=== PATIENT | female | born 1980 | race Caucasian/White ===

== ENCOUNTER 2022-11-16 17:54 | Emergency (ER) | payer SELFPAY ==
[2022-11-16 18:06] VITALS: BP 94/51; PULSE 104; RESP 20; TEMP 38.6; O2SAT 97; BMI 36.6
[2022-11-16 18:46] LABS: Basophils % 0.4 %; Eosinophils # 0.1 10^3/uL (0.0-0.8); Eosinophils % 2.6 %; Lymphocytes # 0.9 10^3/uL (0.8-4.8); Lymphocytes % 34.3 %; Mean Corpuscular HGB Conc 35.7 g/dL (30-55); Mean Corpuscular Hemoglobin 39.5 pg (27-33); Mean Corpuscular Volume 110.8 fl (85-98); Mean Platelet Volume 12.1 fL (7.4-10.4); Monocytes # 0.1 10^3/uL (0.2-0.9); Monocytes % 5.2 %; Neutrophils # 1.52 10^3/uL (1.8-7.7); Nucleated Red Blood Cells % 0 %; Platelet Count 142 10^3/cmm (157-399); Red Blood Count 1.67 10^6/uL (3.85-5.65); Red Cell Distribution Width 14.2 % (12.1-15.1); White Blood Count 2.71 10^3/uL (3.29-11.43)
[2022-11-16 19:01] LABS: Hematocrit 18.5 % (36-47)
[2022-11-16 19:14] LABS: Alanine Aminotransferase 27 U/L (0-33); Albumin Level 3.9 g/dL (3.5-5.2); Alkaline Phosphatase 56 U/L (35-105); Anion Gap 10.6 (5-19); Aspartate Amino Transferase 25 U/L (0-32); Blood Urea Nitrogen 10 mg/dL (6-20); Calcium 8.2 mg/dL (8.5-10.5); Carbon Dioxide 25 mmol/L (22-29); Chloride 105 mmol/L (98-107); Globulin 2.4 g/dL (1.3-4.6); Glomerular Filtration Rate 91.8 mL/min (90-130); Glucose 96 mg/dL (65-115); Magnesium 1.9 mg/dL (1.7-2.3); Osmolality Calculated 283 mOsm/kg (285-295); Potassium 3.6 mmol/L (3.5-5.1); Sodium 137 mmol/L (136-145); Total Protein 6.3 g/dL (6.6-8.7)
[2022-11-16 20:01] LABS: Erythrocyte Sedimentation Rate < 1 mm/hr (0-15)
[2022-11-16 20:14] VITALS: BP 116/58; PULSE 104; RESP 18; O2SAT 98
--- NOTE | 2022-11-16 20:28 | XRR_ITS ---
PROCEDURE INFORMATION: Exam: XR Chest Exam date and time: 11/16/2022 8:52 PM Age: 42 years old Clinical indication: Fever TECHNIQUE: Imaging protocol: Radiologic exam of the chest. Views: 1 view. COMPARISON: No relevant prior studies available. FINDINGS: Lungs: Unremarkable. No consolidation. Pleural spaces: Unremarkable. No pleural effusion. No pneumothorax. Heart/Mediastinum: Unremarkable. No cardiomegaly. Bones/joints: Unremarkable. XR/XR chest 1V portable [id number] IMPRESSION: No acute findings.
[2022-11-16 20:30] LABS: C Reactive Protein 27.6 mg/L (0.0-4.9); Lactic Sepsis W/Reflex 0.7 mmol/L (0.5-2.2)
[2022-11-16 20:35] LABS: Procalcitonin 0.39 ng/mL (0-0.5)
[2022-11-16 20:38] LABS: Add Urine Microscopic? NO; Charge for UA Resulting for Rev
[2022-11-16 20:45] LABS: Bilirubin Urine Neg (Negative); Blood Urine Neg (Negative); Glucose Urine UA Norm (Normal); Ketones Urine Negative (Negative); Leukocyte Esterase Urine Negative (Negative); Nitrate Urine Negative (Negative); Protein Urine Neg (Negative); Specific Gravity, Urine 1.015 (1.005-1.030); Sulfosalicylic Acid Urine Negative (Negative); Urine Appearance Clear (CLEAR); Urine Color Yellow (Yellow); Urobilinogen Urine 1 mg/dL (Negative); pH Urine 9 (5-7)
[2022-11-16] MEDS: acetaminophen 500 mg Tablet 1000 MG PO (20:52)
[2022-11-16 21:01] LABS: Influenza A by IFA negative (Negative); Influenza B by IFA negative (Negative)
--- NOTE | 2022-11-16 21:03 | ED_ITS ---
HPI - Nausea/Vomiting/Diarrhea General: Chief complaint: Nausea/Vomiting/Diarrhea Stated complaint: fever, n/v, chills ,post surgery Time Seen by Provider: 11/16/22 20:14 History of Present Illness: Patient presents to the ER with complaints of body aches chills fever since yesterday, nausea vomiting for a long time. And blood loss anemia in her stools. Patient is currently being worked up for her blood loss in her stools she did have a colonoscopy and EGD yesterday in [place] that she said was normal other than 1 small polyp. Patient states she has had a fever of up to 102.7 since yesterday and just feels horrible all over. Patient denies any coughs colds congestion or pain burning frequency with urination. Review of Systems General: Reports: 10 or more systems reviewed and unremarkable except in HPI and below Physical Exam Const: COMMON NORMALS: no acute distress, average body habitus, patient oriented x3, no limitations, healthy appearing, alert and well nourished HENMT: COMMON NORMALS: normocephalic, atraumatic, hearing grossly normal bilaterally, external ears normal, Normal external nose present and moist oral mucous membranes HEAD & SCALP: normocephalic and atraumatic NOSE: Normal external nose present EXTERNAL EAR: Yes external ears normal Neck/C-Spine: COMMON NORMALS: no JVD Chest: COMMONS NORMALS: normal inspection of the chest and normal palpation of entire chest wall Resp: COMMON NORMALS: normal respiratory effort, No retractions, No use of accessory muscles and clear to auscultation bilaterally AUSCULTATION: clear to auscultation bilaterally Cardio: COMMON NORMALS: no JVD, regular rate, regular rhythm, S1 normal heart sound present, S2 normal heart sound present, No gallops present (Cardio), No clicks present (Cardio), No murmurs present (Cardio) and No rub (Cardio) RATE: regular rate RHYTHM: regular rhythm HEART SOUNDS: S1 normal heart sound present and S2 normal heart sound present GI: COMMON NORMALS: Normal to inspection, nondistended, normoactive bowel sounds present, Soft to palpation, No hepatosplenomegaly present and no masses; negative for non-tender (Diffusely mildly tender) PALPATION: Yes Soft to palpation and Yes No hepatosplenomegaly present : COMMON NORMALS: Yes no CVA tenderness BLADDER/KIDNEY EXAM: Yes no CVA tenderness Back/Pelvis: COMMON NORMALS: no CVA tenderness Neuro: COMMON NORMALS: patient oriented x3 SENSORIUM/ORIENTATION: Yes alert Course Vital Signs: Vital signs: Vital Signs Temperature 101.5 F H 11/16/22 18:06 Pulse Rate 95 11/16/22 21:11 Respiratory Rate 19 H 11/16/22 21:11 Blood Pressure 103/58 11/16/22 21:11 Pulse Oximetry 96 11/16/22 21:11 Oxygen Delivery Me thod Room Air 11/16/22 21:11 MDM - Nausea/Vomiting/Diarrhea Medical Decision Making Patient presents to the ER for body aches chills fevers and anemia. Patient says she has had a colonoscopy and EGD in [place] and multiple blood work-up looking for the results of her blood loss anemia. Which were never found. And since yesterday post colonoscopy she has felt horrible and had a fever. Lab test was performed here which showed a hemoglobin of 6.6 hematocrit of 18.5 with a white count of 2.7 platelets of 142, chest x-ray was negative as well as urine and influenza and COVID. Blood cultures were also obtained. Patient will be transfused 1 unit of packed red cells and then discharged home. Patient should follow-up with her PCP for further evaluation and treatment of her anemia. Differential Diagnosis Unlikely traveler's diarrhea, food poisoning, gastroenteritis, clostridium difficile infection, drug-induced nausea and vomiting or dehydration Medical Records I reviewed the patient's medical records. Lab Data I reviewed the patient's lab results. 11/16/22 18:41 11/16/22 18:41 Radiology Impressions Chest X-Ray 11/16/22 20:28 IMPRESSION: No acute findings. Laboratory Results WBC 2.71 10^3/uL (3.29-11.43) L 11/16/22 18:41 RBC 1.67 10^6/uL (3.85-5.65) L 11/16/22 18:41 Hgb 6.60 g/dL (11.27-16.99) L 11/16/22 18:41 Hct 18.5 % (36-47) L* 11/16/22 18:41 MCV 110.8 fl (85-98) H 11/16/22 18:41 MCH 39.5 pg (27-33) H 11/16/22 18:41 MCHC 35.7 g/dL (30-55) 11/16/22 18:41 RDW 14.2 % (12.1-15.1) 11/16/22 18:41 Plt Count 142 10^3/cmm (157-399) L 11/16/22 18:41 MPV 12.1 fL (7.4-10.4) H 11/16/22 18:41 Neut % (Auto) 56.0 % 11/16/22 18:41 Lymph % (Auto) 34.3 % 11/16/22 18:41 [place] % (Auto) 5.2 % 11/16/22 18:41 Eos % (Auto) 2.6 % 11/16/22 18:41 Baso % (Auto) 0.4 % 11/16/22 18:41 Neut # (Auto) 1.52 10^3/uL (1.8-7.7) L 11/16/22 18:41 Lymph # (Auto) 0.9 10^3/uL (0.8-4.8) 11/16/22 18:41 [place] # (Auto) 0.1 10^3/uL (0.2-0.9) L 11/16/22 18:41 Eos # (Auto) 0.1 10^3/uL (0.0-0.8) 11/16/22 18:41 Baso # (Auto) 0.0 10^3/uL (0.0-0.1) 11/16/22 18: Nucleated RBC % (auto) 0 % 11/16/22 18:41 Nucleated RBCs # 0.0 /100WBC 11/16/22 18:41 ESR < 1 mm/hr (0-15) 11/16/22 18:41 Sodium 137 mmol/L (136-145) 11/16/22 18:41 Potassium 3.6 mmol/L (3.5-5.1) 11/16/22 18:41 Chloride 105 mmol/L (98-107) 11/16/22 18:41 Carbon Dioxide 25 mmol/L (22-29) 11/16/22 18:41 Anion Gap 10.6 (5-19) 11/16/22 18:41 BUN 10 mg/dL (6-20) 11/16/22 18:41 Creatinine 0.7 mg/dL (0.5-0.9) 11/16/22 18:41 GFR Calculation 91.8 mL/min (90-130) 11/16/22 18:41 Glucose 96 mg/dL (65-115) 11/16/22 18:41 Calculated Osmolality 283 mOsm/kg (285-295) L 11/16/22 18:41 Lactic Acid 0.7 mmol/L (0.5-2.2) 11/16/22 18:41 Calcium 8.2 mg/dL (8.5-10.5) L 11/16/22 18:41 Magnesium 1.9 mg/dL (1.7-2.3) 11/16/22 18:41 Total Bilirubin 1.0 mg/dL (0.15-1.2) 11/16/22 18:41 AST 25 U/L (0-32) 11/16/22 18:41 ALT 27 U/L (0-33) 11/16/22 18:41 Alkaline Phosphatase 56 U/L (35-105) 11/16/22 18:41 C-Reactive Protein 27.6 mg/L (0.0-4.9) H 11/16/22 18:41 Total Protein 6.3 g/dL (6.6-8.7) L 11/16/22 18:41 Albumin 3.9 g/dL (3.5-5.2) 11/16/22 18:41 Globulin 2.4 g/dL (1.3-4.6) 11/16/22 18:41 Procalcitonin 0.39 ng/mL (0-0.5) 11/16/22 18:41 Urine Color Yellow (Yellow) 11/16/22 20:21 Urine Appearance Clear (CLEAR) 11/16/22 20:21 Urine pH 9 (5-7) H 11/16/22 20:21 Ur Specific [place] 1.015 (1.005-1.030) 11/16/22 20:21 Urine Protein Neg (Negative) 11/16/22 20:21 Urine Glucose (UA) Norm (Normal) 11/16/22 20:21 Urine Ketones Negative (Negative) 11/16/22 20: Urine Blood Neg (Negative) 11/16/22 20:21 Urine Nitrate Negative (Negative) 11/16/22 20:21 Urine Bilirubin Neg (Negative) 11/16/22 20:21 Prot Sulfosalicylic Acd Negative (Negative) 11/16/22 20:21 Urine Urobilinogen 1 mg/dL (Negative) H 11/16/22 20:21 Ur Leukocyte Esterase Negative (Negative) 11/16/22 20:21 Influenza Type A Ag negative (Negative) 11/16/22 20:38 Influenza Type B Ag negative (Negative) 11/16/22 20:38 SARS-CoV-2 Ag (Rapid) negative (Negative) 11/16/22 20:38 Blood Type O Positive 11/16/22 20:10 Rho(D) Type Positive 11/16/22 20:10 Antibody Screen Negative 11/16/22 20:10 Discharge Plan Discharge Patient Disposition: Home Clinical Impression: Anemia requiring transfusions, Nausea & vomiting Fever Qualifiers: Fever type: unspecified Qualified Code(s): R50.9 - Fever, unspecified Condition: Stable Discharge Orders: Discharge ED (Routine); Ordered 11/16/22 Ordered By: Adelso Schwab Patient Instructions: Blood Transfusion, Fever - Adult, Acute Nausea and Vomiting (ED) Activity Restrictions/Additional Instructions: Follow-up with your primary care doc for further evaluation and treatment of your anemia and blood in stools. We have ger blood cultures here today to try to rule out what causes your fever. We will have those results in a couple days. If they are positive we will call you. Coding Level of Care Code ED Magnetic Testing Technician for [facility]
[2022-11-16] MEDS: ondansetron 2 mg/ML SDV 2 mL 4 MG IVP (21:09)
[2022-11-16 21:11] VITALS: BP 103/58; PULSE 95; RESP 19; O2SAT 96
[2022-11-16 21:15] LABS: SARS Covid-2 Antigen negative (Negative)
--- NOTE | 2022-11-16 21:37 | PC.NURSE ---
Patient thinks that she is having an allergic reaction to something. ONly medications that she has been given are PO tylenol and ivp zofran. Pt states that she is not allergic to either of these. C/o burning and itching everywhere. NO visible rash/ hives/redness. Dr Curran notified and verbal order for Benadryl 50mg ivp.
--- NOTE | 2022-11-16 21:52 | PC.NURSE ---
Went to admin Benadryl to patient and she states that she is no longer burning or itching. Declined medication at this time. Provider notified and medication returned to the [facility].
--- NOTE | 2022-11-16 23:20 | PC.NURSE ---
PRBC admin witnessed by Kaden Bazan RN prior to. # [id number]
[2022-11-16 23:23] VITALS: BP 101/53; PULSE 84; RESP 14; TEMP 36.6; O2SAT 96
[2022-11-16] MEDS: sodium chloride 0.9% 100 mL Bag 50 ML IV (23:35)
[2022-11-16] MEDS: ibuprofen 600 mg Tablet PO (23:37)
[2022-11-16 23:39] VITALS: BP 119/57; PULSE 83; RESP 18; TEMP 36.8; O2SAT 95
--- NOTE | 2022-11-16 23:40 | PC.NURSE ---
BP CUff placed on left arm at first take, moved to right for pt comfort.
[2022-11-16 23:54] VITALS: BP 101/51; PULSE 84; RESP 14; TEMP 37.1; O2SAT 97
[2022-11-17] VITALS (7 sets, daily range): BP systolic 101–122; BP diastolic 55–70; PULSE 72–80; RESP 14–22; TEMP 36.2–37.7; O2SAT 93–97
--- NOTE | 2022-11-17 02:15 | PC.NURSE ---
0054 vitals - temp elevation of 99.8, recheck 99.9. infusion stopped and dr camarillo consulted. Pt had fever on arrival. Per provider, hold infusionx 30 mins and recheck temp. Pt has no other complaints at this time.
--- NOTE | 2022-11-17 02:17 | PC.NURSE ---
recheck of vitals- temp normal x 2 takes. Provider notified and instructed to restart infusion.
== END 2022-11-17 03:42 | disposition home or self-care (01) ==
PROVIDERS: Physician Assistant; Emergency Provider Emergency Medicine
DX: R50.9 Fever, unspecified (principal); R11.2 Nausea with vomiting, unspecified; D64.9 Anemia, unspecified; Z20.822 Contact with and (suspected) exposure to COVID-19
CPT/HCPCS: 36415; 36430; 71045; 80053; 81003; 83605; 83735; 84145; 85025; 85651; 86140; 86850; 86900; 86920; 87040; 87426; 87804; 96374; 99285; J2405; P9016

== ENCOUNTER 2023-03-07 20:45 | Emergency (ER) | payer SELFPAY ==
[2023-03-07 20:49] VITALS: BP 136/66; PULSE 90; RESP 18; TEMP 36.6; O2SAT 96; BMI 38.2
--- NOTE | 2023-03-07 20:49 | ECG_ITS ---
[facility] Test Date: 2023-03-07 Pat Name: Anahy Rojas Department: Room: Gender: Female Copy Operator: : 1980 Requested By: Asad Kamara Order Number: [id number] Chirag MD: Esther Norris M.D. Measurements Intervals [place] Rate: 89 P: 64 KS: 148 QRS: 70 QRSD: 85 T: 57 QT: 328 QTc: 401 Interpretive Statements SINUS RHYTHM No previous ECG available for comparison Electronically Signed On 03-08-2023 18:34:25 REVENUE CYCLE ANALYST by Esther Norris M.D. [email or web address]
--- NOTE | 2023-03-07 20:53 | XRR_ITS ---
PROCEDURE INFORMATION: Exam: XR Chest Exam date and time: 03/07/2023 9:15 PM Age: 42 years old Clinical indication: Chest pressure; Patient HX: Chest pain; Smoker TECHNIQUE: Imaging protocol: Radiologic exam of the chest. Views: 1 view. COMPARISON: CR XR chest 1V portable [id number] 11/16/2022 8:52 PM FINDINGS: Lungs: Lungs are clear bilaterally. Pleural spaces: No pleural effusion. No pneumothorax. Heart/Mediastinum: Stable mild enlargement of the cardiac silhouette. Mediastinal contours are unremarkable. Bones/joints: Unremarkable for age. XR/XR chest 1V portable [id number] IMPRESSION: 1. No acute cardiopulmonary process. 2. Incidental/nonacute findings are listed in the report.
--- NOTE | 2023-03-07 20:58 | ED_ITS ---
HPI - Chest Pain 2 General: Chief Complaint: Chest Pain Stated Complaint: CP Time Seen by Provider: 03/07/23 20:53 History of Present Illness: 42-year-old female presents to the emerg ency department via EMS with complaints of sudden onset chest pain while she was sitting watching TV on her couch. She states the pain became sudden in the middle of her chest radiated to her left jaw. She states she did feel nausea at that time. She states EMS arrived after her significant other called them and provided her cardiac dose aspirin, 2 doses of sublingual nitroglycerin as well as fentanyl and states that she is now completely pain-free. She states she does smoke cigarettes but denies any history of alcohol or substance use. She states that she felt like her chest was beating very fast when she had this chest discomfort she states that she saw on the paramedics machine that her heart rate was 140 bpm and her blood pressure was significantly elevated with a systolic of 190. Associated symptoms: Reports nausea and palpitations Review of Systems 2 General: Reports: 10 or more systems reviewed and unremarkable except in HPI and below Card: Reports: chest pain and palpitations GI: Reports: nausea Physical Exam 2 Narrative: EXAM NARRATIVE: Constitutional: the patient appears well nourished and with normal development. Vital signs reviewed as documented. HENMT: Normocephalic, atraumatic. Extermal ears with normal appearance without drainage. Nose without drainage, normal appearance. Mucus membranes moist. Neck is supple, No jugular venous distension, trachea is midline, no appreciable carotid bruits. No lymphadenopathy. No meningeal signs. Flexion, extension and lateral rotation is without pain. Eyes: Pupils are equal, round, reactive to light and accommodation. No scleral icterus. Extra-ocular movement are intact. Thorax is symmetrical and with equal rise and fall with respirations. Resp: Lungs are clear to auscultation. No wheezes, rales, crackles or ronchi at present. Cardio: Regular rate and rhythm. Positive S1, S2. No appreciable murmurs, rubs or gallops. GI: Abdominal exam reveals normal bowel sounds to all quadrants. No organomegaly. No obvious palpable masses noted. No hepatomegally appreciated. Soft, nontender to palpation. Extremity: Extremities are non-edematous and both femoral and pedal pulses are 2+ and equal bilaterally. Moves all extremities well, sensation in all extremities. Neuro: Alert and oriented x4, person, place, time and situation. Cranial nerves II through XII are grossly intact, there is no focal neurological deficits that I can appreciate at present. Motor strength in the upper and lower extremities are equal and bilateral 5/5. Psych: Cooperative, calm, normal thought process, appropriate judgment. Skin: No lesions, rashes. No gross abnormalities noted. Back: Symmetrical, no obvious deformity, No CVA tenderness Course 2 Reevaluation(s): Reevaluation #1: Patient remains pain free we are currently awaiting the remainder of her labs. No acute distress vital signs are stable current vital signs blood pressure 120/62, heart rate 76 and regular oxygen saturation on room air is 95% respiratory rate is 20. Time: 22:02 Vital Signs: Vital signs: Vital Signs Temperature 97.9 F 03/07/23 20:49 Pulse Rate 86 03/07/23 21:07 Respiratory Rate 17 03/07/23 21:07 Blood Pressure 121/70 03/07/23 21:07 Pulse Oximetry 95 03/07/23 21:10 Oxygen Delivery Me thod Room Air 03/07/23 21:10 MDM - Chest Pain Medical Decision Making Physical exam completed and documented, I will obtain serial cardiac enzymes, serial twelve-lead EKGs, chest x-ray, CBC, CMP, urinalysis, B-type natriuretic peptide, PT/PTT/INR, and a chest x-ray. I provide cardiac dose aspirin if indicated and nitroglycerin administration if indicated. Pending the review of the twelve-lead EKG I will also consider providing loading dose of heparin and possible heparin drip as well as evaluate the need for nitroglycerin drip, and reevaluate accordingly. I will review any pervious and pertinent medical records for assist in obtaining beneficial medical information to improved the care and treatment of the patient. Medical Records I reviewed the patient's medical records. Lab Data I reviewed the patient's lab results. 03/07/23 20:59 03/07/23 20:59 Radiology Impressions Chest X-Ray 03/07/23 20:53 IMPRESSION: 1. No acute cardiopulmonary process. 2. Incidental/nonacute findings are listed in the report. Laboratory Results WBC 9.01 10^3/uL (3.29-11.43) 03/07/23 20:59 RBC 4.95 10^6/uL (3.85-5.65) 03/07/23 20:59 Hgb 13.50 g/dL (11.27-16.99) 03/07/23 20:59 Hct 40.4 % (36-47) 03/07/23 20:59 MCV 81.6 fl (85-98) L 03/07/23 20:59 MCH 27.3 pg (27-33) 03/07/23 20:59 MCHC 33.4 g/dL (30-55) 03/07/23 20:59 RDW 12.5 % (12.1-15.1) 03/07/23 20:59 Plt Count 247 10^3/cmm (157-399) 03/07/23 20:59 MPV 9.6 fL (7.4-10.4) 03/07/23 20:59 Neut % (Auto) 55.2 % 03/07/23 20:59 Lymph % (Auto) 32.5 % 03/07/23 20:59 [place] % (Auto) 8.5 % 03/07/23 20:59 Eos % (Auto) 2.9 % 03/07/23 20:59 Baso % (Auto) 0.7 % 03/07/23 20:59 Neut # (Auto) 4.97 10^3/uL (1.8-7.7) 03/07/23 20:59 Lymph # (Auto) 2.9 10^3/uL (0.8-4.8) 03/07/23 20:59 [place] # (Auto) 0.8 10^3/uL (0.2-0.9) 03/07/23 20:59 Eos # (Auto) 0.3 10^3/uL (0.0-0.8) 03/07/23 20:59 Baso # (Auto) 0.1 10^3/uL (0.0-0.1) 03/07/23 20:59 Nucleated RBC % (auto) 0 % 03/07/23 20:59 Nucleated RBCs # 0.0 /100WBC 03/07/23 20:59 PT 12.80 SECONDS (12.1-14.9) 03/07/23 21:44 INR 0.94 (0.8-1.2) 03/07/23 21:44 APTT 25.7 SECONDS (23.9-36.7) 03/07/23 21:44 Sodium 138 mmol/L (136-145) 03/07/23 20:59 Potassium 3.7 mmol/L (3.5-5.1) 03/07/23 20:59 Chloride 104 mmol/L (98-107) 03/07/23 20:59 Carbon Dioxide 24 mmol/L (22-29) 03/07/23 20:59 Anion Gap 13.7 (5-19) 03/07/23 20:59 BUN 13 mg/dL (6-20) 03/07/23 20:59 Creatinine 0.8 mg/dL (0.5-0.9) 03/07/23 20:59 GFR Calculation 78.7 mL/min (90-130) L 03/07/23 20:59 Glucose 96 mg/dL (65-115) 03/07/23 20:59 Calculated Osmolality 286 mOsm/kg (285-295) 03/07/23 20:59 Calcium 8.9 mg/dL (8.5-10.5) 03/07/23 20:59 Total Bilirubin 0.2 mg/dL (0.15-1.2) 03/07/23 20:59 AST 21 U/L (0-32) 03/07/23 20:59 ALT 37 U/L (0-33) H 03/07/23 20:59 Alkaline Phosphatase 97 U/L (35-105) 03/07/23 20:59 Troponin T Baseline < 6 ng/L (0-10) 03/07/23 20:59 NT-Pro-B Natriuret Pep < 36 pg/mL (0-125) 03/07/23 20:59 Total Protein 6.5 g/dL (6.6-8.7) L 03/07/23 20:59 Albumin 4.0 g/dL (3.5-5.2) 03/07/23 20:59 Globulin 2.5 g/dL (1.3-4.6) 03/07/23 20:59 HCG, Qual Negative (Negative) 03/07/23 21:01 Urine Opiates Screen Negative ng/mL (Negative) 03/07/23 21:01 Ur Barbiturates Screen Negative ng/mL (Negative) 03/07/23 21:01 Ur Phencyclidine Scrn Negative ng/mL (Negative) 03/07/23 21:01 Ur Amphetamines Screen Negative ng/mL (Negative) 03/07/23 21:01 U Benzodiazepines Scrn Negative ng/mL (Negative) 03/07/23 21:01 Urine Cocaine Screen Negative ng/mL (Negative) 03/07/23 21:01 U Marijuana (THC) Screen Negative ng/mL (Negative) 03/07/23 21:01 All radiology interpretation(s) finalized by discharge EKG Data EKG 1: Interpretation: Twelve-lead EKG obtained at 2048 and reviewed at 2048 demonstrates normal sinus rhythm with a ventricular rate of 89, LA interval 148 QRS duration 185 QT 328 QTc [address] elevation or depression to demonstrate acute ischemia or infarction at present. Discharge Plan Discharge Patient Disposition: Home Clinical Impression: Atypical chest pain Condition: Stable Discharge Orders: Discharge ED (Routine); Ordered 03/07/23 Ordered By: Asad Kamara Referrals: Breana Serrato FNP [Primary Care Provider] - Discharge Diet: Advance as tolerated Discharge Activity: Resume usual activity Patient Instructions: Opioid Safety, Pain Management Activity Restrictions/Additional Instructions: Activity Restrictions/Additional Instructions: Thank you for choosing [facility] for your healthcare needs today. Please realize that you were seen in the Emergency Department and that we are providing you with an emergency medical screening exam and this may not be a complete and all inclusive of all the testing and or medical work-up that you may need to determine your ailment or severity of your illness. It is very important that you follow-up as instructed with your Primary care provider or Specialist for additional evaluation and to discuss your medical treatment plan. You may return to the Emergency Department should you have concerns or if your condition changes or worsens in any way. Coding Level of Care Code ED Press Setter for [facility]
[2023-03-07 21:07] VITALS: BP 121/70; PULSE 86; RESP 17; O2SAT 95
[2023-03-07 21:08] LABS: Basophils # 0.1 10^3/uL (0.0-0.1); Basophils % 0.7 %; Eosinophils # 0.3 10^3/uL (0.0-0.8); Eosinophils % 2.9 %; Hematocrit 40.4 % (36-47); Lymphocytes # 2.9 10^3/uL (0.8-4.8); Lymphocytes % 32.5 %; Mean Corpuscular HGB Conc 33.4 g/dL (30-55); Mean Corpuscular Hemoglobin 27.3 pg (27-33); Mean Corpuscular Volume 81.6 fl (85-98); Mean Platelet Volume 9.6 fL (7.4-10.4); Monocytes # 0.8 10^3/uL (0.2-0.9); Monocytes % 8.5 %; Neutrophils # 4.97 10^3/uL (1.8-7.7); Neutrophils % 55.2 %; Nucleated Red Blood Cells % 0 %; Platelet Count 247 10^3/cmm (157-399); Red Blood Count 4.95 10^6/uL (3.85-5.65); Red Cell Distribution Width 12.5 % (12.1-15.1); White Blood Count 9.01 10^3/uL (3.29-11.43)
[2023-03-07 21:10] VITALS: O2SAT 95
[2023-03-07 21:25] LABS: HCG Qualitative Urine. Negative (Negative)
[2023-03-07 21:26] LABS: Troponin(5th) Baseline < 6 ng/L (0-10)
[2023-03-07 21:27] LABS: Amphetamines Screen Urine Negative (Negative); Barbiturates Screen Urine Negative (Negative); Benzodiazepines Screen Urine Negative (Negative); Cocaine Screen Urine Negative (Negative); Opiate Screen Urine Negative (Negative); PCP Screen Urine Negative (Negative); THC Screen Urine Negative (Negative)
[2023-03-07 22:01] LABS: Alanine Aminotransferase 37 U/L (0-33); Alkaline Phosphatase 97 U/L (35-105); Aspartate Amino Transferase 21 U/L (0-32); Blood Urea Nitrogen 13 mg/dL (6-20); Calcium 8.9 mg/dL (8.5-10.5); Carbon Dioxide 24 mmol/L (22-29); Chloride 104 mmol/L (98-107); Globulin 2.5 g/dL (1.3-4.6); Glomerular Filtration Rate 78.7 mL/min (90-130); Glucose 96 mg/dL (65-115); Osmolality Calculated 286 mOsm/kg (285-295); Sodium 138 mmol/L (136-145); Total Bilirubin 0.2 mg/dL (0.15-1.2); Total Protein 6.5 g/dL (6.6-8.7)
[2023-03-07 22:02] LABS: Anion Gap 13.7 (5-19); Potassium 3.7 mmol/L (3.5-5.1)
[2023-03-07 22:08] LABS: INR 0.94 (0.8-1.2)
[2023-03-07 22:09] LABS: Partial Thromboplastin Time 25.7 SECONDS (23.9-36.7)
[2023-03-07 22:10] LABS: NT Pro B Type Natriuretic Pept < 36 pg/mL (0-125)
== END 2023-03-07 23:16 | disposition home or self-care (01) ==
PROVIDERS: Emergency Provider Internal Medicine; PCP Registered Nurse
DX: R07.89 Other chest pain (principal)
CPT/HCPCS: 36415; 71045; 80053; 80306; 81025; 83880; 84484; 85025; 85610; 85730; 93005; 99285

== ENCOUNTER 2023-05-31 22:22 | Emergency (ER) | payer SELFPAY ==
[2023-05-31 22:29] VITALS: BP 130/85; PULSE 85; RESP 16; TEMP 36.6; O2SAT 98
[2023-05-31 23:12] VITALS: BP 112/63; BP 117/59; BP 124/51; PULSE 82; PULSE 84; PULSE 87
[2023-05-31] MEDS: sodium chloride 0.9% 1,000 ML 999 ML IV (23:19)
[2023-05-31 23:23] LABS: Basophils # 0.1 10^3/uL (0.0-0.1); Basophils % 0.7 %; Eosinophils # 0.3 10^3/uL (0.0-0.8); Eosinophils % 3.9 %; Hematocrit 39.3 % (36-47); Lymphocytes # 3.1 10^3/uL (0.8-4.8); Lymphocytes % 35.6 %; Mean Corpuscular HGB Conc 33.1 g/dL (30-55); Mean Corpuscular Hemoglobin 27.5 pg (27-33); Mean Corpuscular Volume 83.3 fl (85-98); Mean Platelet Volume 9.4 fL (7.4-10.4); Monocytes # 0.8 10^3/uL (0.2-0.9); Monocytes % 8.8 %; Neutrophils # 4.47 10^3/uL (1.8-7.7); Neutrophils % 50.8 %; Nucleated Red Blood Cells % 0 %; Platelet Count 269 10^3/cmm (157-399); Red Blood Count 4.72 10^6/uL (3.85-5.65); Red Cell Distribution Width 13.2 % (12.1-15.1); White Blood Count 8.79 10^3/uL (3.29-11.43)
--- NOTE | 2023-05-31 23:23 | ED_ITS ---
Documented by User: DAVID Parsons 05/31/23 23:59 HPI - Female Genitourinary 2 General: Chief complaint: GI Bleed Stated complaint: BRBPR Time Seen by Provider: 05/31/23 22:26 Source: patient Mode of arrival: ambulatory Limitations: no limitations History of Present Illness: Patient is a 42-year-old female presents the emergency department complaining of BRBPR onset 4-5 days. Patient reports history of hemorrhoids and anemia, and states she is had a normal colonoscopy as recent as last October. She reports being seen in the ER for similar symptoms in the past, where she was found to be severely anemic and transfused. Patient states she has had repetitive episodes of bleeding solely from the rectum, and states sometimes she does not even pass stool. She reports associated nausea and dizziness, however does not have any abdominal pain or vomiting or diarrhea. She denies any other symptoms. Patient states she has seen a GI in the past and was diagnosed with intestinal metaplasia. Otherwise, she states that no one was ever able to find out why she was bleeding so much aside from her possible history of internal and external hemorrhoids. Associated symptoms: Reports nausea; Deny abdominal pain or headache(s) Review of Systems 2 General: Reports: 10 or more systems reviewed and unremarkable except in HPI and below Const: Denies: fever(s), chills, change in appetite, change in weight or diaphoresis ENMT: Denies: throat pain or hoarseness Card: Denies: chest pain, palpitations or lightheadedness Resp: Denies: dyspnea, productive cough or wheezing GI: Reports: nausea and hematochezia; Denies: abdominal pain, vomiting, diarrhea, constipation, bloating, pain on defecation, rectal pain, change in stool character or melena : Denies: flank pain, difficulty voiding, dysuria, urinary frequency or urinary urgency Musc: Denies: neck pain or back pain Skin/Breast: Denies: rash or new lesions Neuro: Reports: dizziness; Denies: headache(s) Physical Exam 2 Const: COMMON NORMALS: no acute distress, average body habitus, patient oriented x3, no limitations, healthy appearing, alert and well nourished G ENERAL APPEARANCE: cooperative and comfortable ORIENTATION/CONSCIOUSNESS: Yes awake HENMT: COMMON NORMALS: normocephalic, atraumatic, hearing grossly normal bilaterally, external ears normal, Normal external nose present, Normal nasal mucous membranes and turbinates present and moist oral mucous membranes HEAD & SCALP: normocephalic and atraumatic NOSE: Normal external nose present and Normal nasal mucous membranes and turbinates present EXTERNAL EAR: Yes external ears normal Eye: COMMON NORMALS: EOMs intact bilaterally, conjunctivae normal and normal visual luu by confrontation CONJUNCTIVA: Yes conjunctivae normal Neck/C-Spine: COMMON NORMALS: full ROM, supple, no meningeal signs and no JVD Resp: COMMON NORMALS: normal respiratory effort, No retractions, No use of accessory muscles and clear to auscultation bilaterally AUSCULTATION: clear to auscultation bilaterally, no crackles, no rales, no rhonchi and no wheezes Cardio: COMMON NORMALS: no JVD, regular rate, regular rhythm, S1 normal heart sound present, S2 normal heart sound present, No gallops present (Cardio), No clicks present (Cardio), No murmurs present (Cardio), No rub (Cardio) and Peripheral pulses 2+ throughout RATE: regular rate RHYTHM: regular rhythm HEART SOUNDS: S1 normal heart sound present and S2 normal heart sound present PERIPHERAL PULSES: Peripheral pulses 2+ throughout GI: COMMON NORMALS: Normal to inspection, nondistended, normoactive bowel sounds present, Soft to palpation, non-tender, No hepatosplenomegaly present and no masses AUSCULTATION: Yes normoactive bowel sounds PALPATION: Yes Soft to palpation, No Guarding due to palpation present (GI), No Rigid due to palpation and Yes No hepatosplenomegaly present RECTAL EXAM: normal sphincter tone, heme positive stool gross blood, External hemorrhoid(s) present (Numerous) and Internal hemorrhoid(s) present Extremity: COMMON NORMALS: normal to inspection and full ROM Neuro: COMMON NORMALS: patient oriented x3, moves all extremities, no focal motor deficits and no sensory deficits noted SENSORIUM/ORIENTATION: Yes alert MENINGEAL SIGNS: Yes no meningeal signs Psych: COMMON NORMALS: mental status grossly normal, cooperative and speech normal SPEECH: Yes normal speech Skin: COMMON NORMALS: no rashes or lesions noted GENERAL SKIN EXAM: no rashes or lesions noted Course 2 Vital Signs: Vital signs: Vital Signs Temperature 97.9 F 05/31/23 22:29 Pulse Rate 80 06/01/23 00:04 Respiratory Rate 17 06/01/23 00:04 Blood Pressure 128/61 06/01/23 00:04 Pulse Oximetry 97 06/01/23 00:04 Oxygen Delivery Me thod Room Air 05/31/23 23:48 MDM - Female Medical Decision Making Patient seen in the emergency department today for bright red blood per rectum. Patient reports history of this requiring transfusion in the past, and she states she wanted evaluation before it got to that point again. Only associated symptoms are some nausea and dizziness. Rectal exam showed numerous external hemorrhoids around the anal sphincter, heme positive stool with gross bright red blood. CBC CMP and lipase all unremarkable. Started the patient on a liter of fluids. I informed patient of likelihood that her bleeding is from her numerous external and probable internal hemorrhoids, and that due to her normal workup that she can follow-up with her already established GI doctor/primary care provider for any further/necessary workup. Instructed her on daily recommended fiber intake as well as importance of hydration. Patient agrees with this plan. Discharged home. Lab Data I reviewed the patient's lab results. 05/31/23 23:15 05/31/23 23:15 Laboratory Results WBC 8.79 10^3/uL (3.29-11.43) 05/31/23 23:15 RBC 4.72 10^6/uL (3.85-5.65) 05/31/23 23:15 Hgb 13.00 g/dL (11.27-16.99) 05/31/23 23:15 Hct 39.3 % (36-47) 05/31/23 23:15 MCV 83.3 fl (85-98) L 05/31/23 23:15 MCH 27.5 pg (27-33) 05/31/23 23:15 MCHC 33.1 g/dL (30-55) 05/31/23 23:15 RDW 13.2 % (12.1-15.1) 05/31/23 23:15 Plt Count 269 10^3/cmm (157-399) 05/31/23 23:15 MPV 9.4 fL (7.4-10.4) 05/31/23 23:15 Neut % (Auto) 50.8 % 05/31/23 23:15 Lymph % (Auto) 35.6 % 05/31/23 23:15 [place] % (Auto) 8.8 % 05/31/23 23:15 Eos % (Auto) 3.9 % 05/31/23 23:15 Baso % (Auto) 0.7 % 05/31/23 23:15 Neut # (Auto) 4.47 10^3/uL (1.8-7.7) 05/31/23 23:15 Lymph # (Auto) 3.1 10^3/uL (0.8-4.8) 05/31/23 23:15 [place] # (Auto) 0.8 10^3/uL (0.2-0.9) 05/31/23 23:15 Eos # (Auto) 0.3 10^3/uL (0.0-0.8) 05/31/23 23:15 Baso # (Auto) 0.1 10^3/uL (0.0-0.1) 05/31/23 23:15 Nucleated RBC % (auto) 0 % 05/31/23 23:15 Nucleated RBCs # 0.0 /100WBC 05/31/23 23:15 Sodium 138 mmol/L (136-145) 05/31/23 23:15 Potassium 3.7 mmol/L (3.5-5.1) 05/31/23 23:15 Chloride 102 mmol/L (98-107) 05/31/23 23:15 Carbon Dioxide 24 mmol/L (22-29) 05/31/23 23:15 Anion Gap 15.7 (5-19) 05/31/23 23:15 BUN 14 mg/dL (6-20) 05/31/23 23:15 Creatinine 0.6 mg/dL (0.5-0.9) 05/31/23 23:15 GFR Calculation 109.6 mL/min (90-130) 05/31/23 23:15 Glucose 94 mg/dL (65-115) 05/31/23 23:15 Calculated Osmolality 286 mOsm/kg (285-295) 05/31/23 23:15 Calcium 9.1 mg/dL (8.5-10.5) 05/31/23 23:15 Total Bilirubin 0.2 mg/dL (0.15-1.2) 05/31/23 23:15 AST 15 U/L (0-32) 05/31/23 23:15 ALT 26 U/L (0-33) 05/31/23 23:15 Alkaline Phosphatase 93 U/L (35-105) 05/31/23 23:15 Total Protein 6.7 g/dL (6.6-8.7) 05/31/23 23:15 Albumin 4.0 g/dL (3.5-5.2) 05/31/23 23:15 Globulin 2.7 g/dL (1.3-4.6) 05/31/23 23:15 Lipase 29 U/L (13-60) 05/31/23 23:15 No radiology studies performed this visit Discharge Plan Discharge Patient Disposition: Home Clinical Impression: Hemorrhoids Qualifiers: Hemorrhoid type: unspecified Qualified Code(s): K64.9 - Unspecified hemorrhoids Condition: Stable Discharge Orders: Discharge ED (Routine); Ordered 05/31/23 Ordered By: Erick Senior Referrals: Breana Serrato FNP [Primary Care Provider] - Discharge Diet: As Directed Discharge Activity: Increase activity as tolerated Patient Instructions: Hemorrhoids (ED) Activity Restrictions/Additional Instructions: Recommend 20 to 30 g of fiber daily. Plenty of fluids. Please follow-up with your primary care provider as discussed for further evaluation and/or referral to GI. Return with any new concerning symptoms. 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 Patient reports history of this requiring transfusion in the past, and she states she wanted evaluation before it got to that point again. Only associated symptoms are some nausea and dizziness. Rectal exam showed numerous external hemorrhoids around the anal sphincter, heme positive stool with gross bright red blood. CBC CMP and lipase all unremarkable. Started the patient on a liter of fluids. I informed patient of likelihood that her bleeding is from her numerous external and probable internal hemorrhoids, and that due to her normal workup that she can follow-up with her already established GI doctor/primary care provider for any further/necessary workup. Instructed her on daily recommended fiber intake as well as importance of hydration. Patient agrees with this plan. Discharged home. Chart reviewed Lab Data 05/31/23 23:15 05/31/23 23:15 Laboratory Results WBC 8.79 10^3/uL (3.29-11.43) 05/31/23 23:15 RBC 4.72 10^6/uL (3.85-5.65) 05/31/23 23:15 Hgb 13.00 g/dL (11.27-16.99) 05/31/23 23:15 Hct 39.3 % (36-47) 05/31/23 23:15 MCV 83.3 fl (85-98) L 05/31/23 23:15 MCH 27.5 pg (27-33) 05/31/23 23:15 MCHC 33.1 g/dL (30-55) 05/31/23 23:15 RDW 13.2 % (12.1-15.1) 05/31/23 23:15 Plt Count 269 10^3/cmm (157-399) 05/31/23 23:15 MPV 9.4 fL (7.4-10.4) 05/31/23 23:15 Neut % (Auto) 50.8 % 05/31/23 23:15 Lymph % (Auto) 35.6 % 05/31/23 23:15 [place] % (Auto) 8.8 % 05/31/23 23:15 Eos % (Auto) 3.9 % 05/31/23 23:15 Baso % (Auto) 0.7 % 05/31/23 23:15 Neut # (Auto) 4.47 10^3/uL (1.8-7.7) 05/31/23 23:15 Lymph # (Auto) 3.1 10^3/uL (0.8-4.8) 05/31/23 23:15 [place] # (Auto) 0.8 10^3/uL (0.2-0.9) 05/31/23 23:15 Eos # (Auto) 0.3 10^3/uL (0.0-0.8) 05/31/23 23:15 Baso # (Auto) 0.1 10^3/uL (0.0-0.1) 05/31/23 23:15 Nucleated RBC % (auto) 0 % 05/31/23 23:15 Nucleated RBCs # 0.0 /100WBC 05/31/23 23:15 Sodium 138 mmol/L (136-145) 05/31/23 23:15 Potassium 3.7 mmol/L (3.5-5.1) 05/31/23 23:15 Chloride 102 mmol/L (98-107) 05/31/23 23:15 Carbon Dioxide 24 mmol/L (22-29) 05/31/23 23:15 Anion Gap 15.7 (5-19) 05/31/23 23:15 BUN 14 mg/dL (6-20) 05/31/23 23:15 Creatinine 0.6 mg/dL (0.5-0.9) 05/31/23 23:15 GFR Calculation 109.6 mL/min (90-130) 05/31/23 23:15 Glucose 94 mg/dL (65-115) 05/31/23 23:15 Calculated Osmolality 286 mOsm/kg (285-295) 05/31/23 23:15 Calcium 9.1 mg/dL (8.5-10.5) 05/31/23 23:15 Total Bilirubin 0.2 mg/dL (0.15-1.2) 05/31/23 23:15 AST 15 U/L (0-32) 05/31/23 23:15 ALT 26 U/L (0-33) 05/31/23 23:15 Alkaline Phosphatase 93 U/L (35-105) 05/31/23 23:15 Total Protein 6.7 g/dL (6.6-8.7) 05/31/23 23:15 Albumin 4.0 g/dL (3.5-5.2) 05/31/23 23:15 Globulin 2.7 g/dL (1.3-4.6) 05/31/23 23:15 Lipase 29 U/L (13-60) 05/31/23 23:15 Discharge Plan Discharge Patient Disposition: Home Clinical Impression: Hemorrhoids Qualifiers: Hemorrhoid type: unspecified Qualified Code(s): K64.9 - Unspecified hemorrhoids Condition: Stable Discharge Orders: Discharge ED (Routine); Ordered 05/31/23 Ordered By: Erick Senior Referrals: Breana Serrato FNP [Primary Care Provider] - Discharge Diet: As Directed Discharge Activity: Increase activity as tolerated Patient Instructions: Hemorrhoids (ED) Activity Restrictions/Additional Instructions: Recommend 20 to 30 g of fiber daily. Plenty of fluids. Please follow-up with your primary care provider as discussed for further evaluation and/or referral to GI. Return with any new concerning symptoms. 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
[2023-05-31 23:40] LABS: Alanine Aminotransferase 26 U/L (0-33); Alkaline Phosphatase 93 U/L (35-105); Anion Gap 15.7 (5-19); Aspartate Amino Transferase 15 U/L (0-32); Blood Urea Nitrogen 14 mg/dL (6-20); Calcium 9.1 mg/dL (8.5-10.5); Carbon Dioxide 24 mmol/L (22-29); Chloride 102 mmol/L (98-107); Globulin 2.7 g/dL (1.3-4.6); Glomerular Filtration Rate 109.6 mL/min (90-130); Glucose 94 mg/dL (65-115); Lipase 29 U/L (13-60); Osmolality Calculated 286 mOsm/kg (285-295); Potassium 3.7 mmol/L (3.5-5.1); Sodium 138 mmol/L (136-145); Total Bilirubin 0.2 mg/dL (0.15-1.2); Total Protein 6.7 g/dL (6.6-8.7)
[2023-05-31 23:48] VITALS: BP 131/60; PULSE 78; RESP 17; O2SAT 98
[2023-06-01 00:04] VITALS: BP 128/61; PULSE 80; RESP 17; O2SAT 97
== END 2023-06-01 00:05 | disposition home or self-care (01) ==
PROVIDERS: Emergency Provider Physician Assistant; PCP Registered Nurse
DX: K64.9 Unspecified hemorrhoids (principal)
CPT/HCPCS: 80053; 83690; 85025; 99284; J7030